=== PATIENT | female | born 1985 | race Caucasian/White ===

== ENCOUNTER 2020-05-04 10:04 | Outpatient (REF) | payer OTHER, SELFPAY ==
--- NOTE | 2020-05-04 08:00 | PAPFT_PTH ---
PATIENT: Loraine Melchor [facility]: [facility] U#:[id number] AGE/SX: 34/F ROOM: RE05/04/[address]: Brenda Cuellar : 1985 BED: DIS: 05/04/2020 SPEC #: [id number] RECD: 05/05/20 12:47 STATUS: CHON REQ #: [id number] LESLY: 05/04/20 08:[address]: Brenda Cuellar DEPT: [facility] Cytology RECD BY: Yamilka Tamez ENTERED: 05/05/20 12:47 SP TYPE: PAPFT OTHR DR: Ericka Estevez Tissues: 1 - CX/ENDOCX FOR PAP SMEARS Procedures: PAP THIN PREP/[facility] Screening HPV DNA PROBE Comments: [id number]
== END 2020-05-04 10:24 ==
LOC: NCHCN 10:04
PROVIDERS: PCP Nurse Practitioner Family; Visit Provider Registered Nurse
DX: Z12.4 Encounter for screening for malignant neoplasm of cervix (principal); Z11.51 Encounter for screening for human papillomavirus (HPV)
CPT/HCPCS: 88142; 87624

== ENCOUNTER 2021-06-13 17:22 | Outpatient (REF) | payer BC, SELFPAY ==
[2021-06-15 21:16] LABS: Chlamydia Result Negative (Negative); GC Result Negative (Negative)
== END 2021-06-13 17:23 | disposition home or self-care (01) ==
LOC: NCHCN 17:22
PROVIDERS: PCP Nurse Practitioner Family; Visit Provider Registered Nurse
DX: N76.0 Acute vaginitis (principal); Z11.3 Encounter for screening for infections with a predominantly sexual mode of transmission
CPT/HCPCS: 87491; 87591; 87480; 87510; 87660

== ENCOUNTER 2023-10-29 17:49 | Outpatient (REF) | payer BC, SELFPAY ==
[2023-10-29 20:57] LABS: HCT 41.8 % (36.0-46.0); HGB 14.3 g/dL (11.2-15.7); MCH 28.4 pg (27.0-33.0); MCHC 34.2 % (32.0-36.0); MCV 83 fL (80-95); MPV 11.2 fL (8.0-11.0); Platelet Count 270 10^3/uL (130-400); RBC 5.04 10^6/uL (3.93-5.22); RDW 12.3 % (11.7-14.6); RDW-SD 37.2 fL; WBC 7.98 10^3/uL (4.4-10.8)
[2023-10-29 21:38] LABS: ALT 20 U/L (14-59); AST 17 U/L (15-37); Albumin 4.1 g/dL (3.4-5.0); Alkaline Phosphatase 72 U/L (46-116); Anion Gap 7.5 mmol/L (3-11); BUN 13 mg/dL (7-18); Bilirubin, Total 0.4 mg/dL (0.2-1.0); CO2 28.5 mmol/L (21.0-32.0); CREATININE 0.9 mg/dL (0.55-1.02); Calcium 8.8 mg/dL (8.5-10.1); Chloride 105 mmol/L (98-107); Glucose 117 mg/dL (74-106); Magnesium 1.9 mg/dL (1.8-2.4); Potassium 3.5 mmol/L (3.5-5.1); Sodium 141 mmol/L (136-145); Total Protein 7.4 g/dL (6.4-8.2); Vitamin B12 233 pg/mL (193-986); Vitamin D 25 Total 39.3 ng/mL (30-100)
== END 2023-10-29 17:50 | disposition home or self-care (01) ==
LOC: NCHCN 17:49
PROVIDERS: PCP Nurse Practitioner Family; Visit Provider Family Medicine
DX: M79.18 Myalgia, other site (principal)
CPT/HCPCS: 80053; 82306; 85027; 82607; 83735

== ENCOUNTER 2024-06-22 18:07 | Outpatient (REF) | payer BC, SELFPAY ==
--- NOTE | 2024-06-22 15:20 | PAPFT_PTH ---
PATIENT: Loraine Melchor LOC: [facility] U#:[id number] AGE/SX: 38/F ROOM: RE06/22/[address]: JHONNY: 1985 BED: DIS: 06/22/2024 SPEC #: [id number] RECD: 06/23/24 12:50 STATUS: CHON AVALOS #: [id number] LESLY: 06/22/24 15:[address]: Linda Chand DEPT: [facility] Cytology RECD BY: Yamilka Tamez ENTERED: 06/23/24 12:50 SP TYPE: PAPFT OTHR DR: Ericka Estevez Tissues: 1 - CX/ENDOCX FOR PAP SMEARS Procedures: PAP THIN PREP/[facility] Screening HPV DNA PROBE Comments: [id number] (HPV 16 & 18/45) (CHLAMYDIA/GC)
[2024-06-24 13:04] LABS: Chlamydia Result Negative (Negative); GC Result Negative (Negative)
== END 2024-06-22 18:08 | disposition home or self-care (01) ==
LOC: NCHCN 18:07
PROVIDERS: PCP Nurse Practitioner Family; Visit Provider Family Medicine
DX: Z11.51 Encounter for screening for human papillomavirus (HPV) (principal); Z11.3 Encounter for screening for infections with a predominantly sexual mode of transmission; Z01.419 Encounter for gynecological examination (general) (routine) without abnormal findings
CPT/HCPCS: 87491; 87591; 88142; 87624